=== PATIENT | male | born 1950 | race Caucasian/White ===

== ENCOUNTER 2018-03-17 13:56 | Outpatient (RCR) | payer OTHER, MEDICARE ==
[2018-03-12 10:11] VITALS: BP 150/80
[2018-03-13 12:33] VITALS: BP 148/94
[2018-03-13 12:48] VITALS: BP 136/112
[~2018-03-17 13:56] MED LIST: ALLO-119 PO; AUG500 PO; HYDR-653 PO; IBUP800T37 PO; IRO150 PO; KET10 PO; LISI-374 PO; NO REPORTED MEDS; PAN40 PO; PER PO; PREDNISONE; SUCR1ORA13 PO
[2018-03-17 14:01] VITALS: BP 125/87
== END 2018-05-14 11:24 | disposition home or self-care (01) ==
LOC: SPU 13:56
PROVIDERS: ADMIT Surgery; ATTEND Family Medicine
DX: D75.1 Secondary polycythemia (principal)
CPT/HCPCS: 99195

== ENCOUNTER 2018-06-12 15:15 | Outpatient (RCR) | payer MEDICARE, OTHER ==
--- NOTE | 2018-04-07 09:36 | PT INITIAL EVALUATION ---
MEDICAL DIAGNOSIS: complete rotator cuff tear of left shoulder TREATMENT DIAGNOSIS: same DATE OF ONSET: 03/18/18 SUBJECTIVE: uHgo Whalen presents to physical therapy status post L RSA on March 18 2018. He reports that this physician is requiring him to wear his sling til Saturday. He reports that he has not been doing anything at home other than shoulder circles over a counter and squeezing his ball. He denies any resting pain. He reports that he feels pain when he moves his shoulder and rates it to be 4-5/10. He reports that he would like to get back to work and would like to swim when they go to [place] in the winter and spring. He reports that he has more elbow pain than shoulder pain due to a blood sack. He reports that he has been icing and elevating. REHAB PROBLEM LIST: Increased Pain Decreased ROM Decreased Strength Decreased Endurance Decreased Function Decreased ADL's PREVIOUS MEDICAL HISTORY: See EMR OCCUPATION: Work around the house OBJECTIVE: Posture: He demonstrates minimal forward head, B rounded shoulders, increased thoracic kyphosis, and decreased lumbar lordosis ROM: PROM of L shoulder: flexion: 135 deg, abduction: 95 deg, ER at side: 20 deg, IR: 85 deg. AAROM: flexion: 125 deg, abduction: 90 deg, ER at side: 20 deg, IR: 85 deg. AROM: flexion, abduction, flexion: 90 deg. He had empty end feels in all directions. Strength: Did not perform due to recent surgical intervention Palpation: TTP: anterior L shoulder, L anterior, medial, and lateral elbow Special Tests: QuickDash: 41% impairment Mobility: Independent Gait: Moderate hypomobility of L scapulae in all directions. ASSESSMENT: Hugo will benefit from skilled physical therapy addressing the listed impairments and improve function and QOL per his healing parameters. Short Term Goals 2 weeks: Pt will demonstrate full L shoulder PROM in all directions (flexion, abduction, IR, ER, and scaption) to improve function and QOL. 4 weeks: Pt will demonstrate full L shoulder AROM in all directions to improve function and QOL. 6 weeks: Pt will be independent with strengthening and flexibility exercise to improve and return to prior level of function. 6 weeks: Pt will demonstrate significant improvements in L shoulder and periscapular strength from baseline to 4+/5 or greater to improve function and QOL. Patient's Goals return to work around the house and get back to swimming PLAN: Patient to be seen for Manual Therapy/STM/MET Strengthening/condition Ice/Heat Range of Motion Work Hardening/Cond Stretching Iontophoresis Neuromuscular Re-ed Closed Chain Program Electrical Stim Posture/Body mechanics Home Exercise Program Therapeutic Activities 2-3 x/weeks for 6 Weeks If you have any questions, comments, or concerns about this report or plan, please contact me at . Thank you, Boaz Cabezas, PT, DPT MTDD
--- NOTE | 2018-05-12 11:11 | PT PLAN OF CARE ---
Physician: Ronen Acosta MD Patient is being seen: 2x/week Therapist: Boaz Cabezas, PT, DPT Medical Diagnosis: complete rotator cuff tear of left shoulder Treatment Diagnosis: same Date of Onset: 03/18/18 Date of Initial Evaluation: 04/07/18 Date patient was last seen: 05/12/18 Number of treatments: 10 Number of cancellations/No shows: 1 INTERVENTIONS: Manual Therapy/STM/MET Strengthening/condition Ice/Heat Range of Motion Work Hardening/Cond Stretching Iontophoresis Neuromuscular Re-ed Closed Chain Program Electrical Stim Posture/Body mechanics Home Exercise Program Therapeutic Activities GOALS: 2 weeks: Pt will demonstrate full L shoulder PROM in all directions (flexion, abduction, IR, ER, and scaption) to improve function and QOL. 4 weeks: Pt will demonstrate full L shoulder AROM in all directions to improve function and QOL. 6 weeks: Pt will be independent with strengthening and flexibility exercise to improve and return to prior level of function. 6 weeks: Pt will demonstrate significant improvements in L shoulder and periscapular strength from baseline to 4+/5 or greater to improve function and QOL. PATIENT'S GOAL: return to work around the house and get back to swimming Status of Patient's Goals: Progressing Patient Compliance: Good Prognosis: Excellent Reasons for continuing therapy: This is a progress note for Hugo Whalen. He reports that he feels like the L shoulder is improving but continues to report increased "popping" in the L shoulder during L shoulder PROM-AROM into scaption and abduction and from the 90-120 degrees of those ranges it is an extremely painful pop and it goes from superficial pop to deep pop as he moves from scaption to abduction. He denies any resting L shoulder pain and states that he only has intense pain with that popping sensation. He reports that he does have neck pain and rates his neck pain to be 3/10. He states that he would like to have his neck pain checked out in the future. He reports that his L hand will become numb and painful during the night and typically wakes him 2 times per night. Furthermore, he reports that the L elbow is getting better and occasionally feels a sharp pain. He continues to progressing with PROM-AAROM with his L shoulder in all directions, but continues to have the painful arc in scaption and abduction along with an extremely painful pop. In scaption, the pop feels like a posterior muscle is popping over humerus as it rotates when he elevates his L shoulder. In abduction, the pop sensation becomes deeper and feels less muscle interference and more joint related. As a result, we positioned his L glenohumeral joint more anterior with McConnells tape and he experienced a drastic reduction of pain and popping with L shoulder AAROM into scaption and abduction. He demonstrated significant improvements in his quickDASH from 41% impairment to 18% impairment. Furthermore, we will continue to improve PROM-AROM in all directions, strength, and return to prior level of function as he tolerates. Posture: He demonstrates minimal forward head, B rounded shoulders, increased thoracic kyphosis, and decreased lumbar lordosis ROM: PROM of L shoulder: flexion: 160 deg, abduction: 130 deg, ER at side: 85 deg, IR: 90 deg. AAROM: flexion: 150 deg, abduction: 130 deg, ER at side: 70 deg, IR: 85 deg. AROM: flexion, abduction, flexion: 110 deg. Special Tests: QuickDash: 18% impairment Mobility: Independent If you have any questions, please contact me at [phone]. Thank you, Boaz Cabezas, PT, DPT MTDD
--- NOTE | 2018-06-13 18:32 | PT PLAN OF CARE ---
Physician: Ronen Acosta MD Patient is being seen: 2x/week Therapist: Boaz Cabezas, PT, DPT Medical Diagnosis: complete rotator cuff tear of left shoulder Treatment Diagnosis: same Date of Onset: 03/18/18 Date of Initial Evaluation: 04/07/18 Date patient was last seen: 06/12/18 Number of treatments: 17 Number of cancellations/No shows: 2 INTERVENTIONS: Manual Therapy/STM/MET Strengthening/condition Ice/Heat Range of Motion Work Hardening/Cond Stretching Iontophoresis Neuromuscular Re-ed Closed Chain Program Electrical Stim Posture/Body mechanics Home Exercise Program Therapeutic Activities GOALS: 2 weeks: Pt will demonstrate full L shoulder PROM in all directions (flexion, abduction, IR, ER, and scaption) to improve function and QOL. 4 weeks: Pt will demonstrate full L shoulder AROM in all directions to improve function and QOL. 6 weeks: Pt will be independent with strengthening and flexibility exercise to improve and return to prior level of function. 6 weeks: Pt will demonstrate significant improvements in L shoulder and periscapular strength from baseline to 4+/5 or greater to improve function and QOL. PATIENT'S GOAL: return to work around the house and get back to swimming Status of Patient's Goals: Progressing Patient Compliance: Good Prognosis: Excellent Reasons for continuing therapy: This is a progress note for Hugo Whalen. He reports that he is doing better. He reports that he feels like the L shoulder is getting stronger and he is able to move it better in all directions. He reports that the popping has gotten better, but occasional continues when moving the L shoulder in abduction. He denies any current pain. He reports that he continues to perform his HEP without any difficulties. He reports that he will be heading down to [place] following this session. He demonstrated significant improvements in his quickDASH from 41% impairment to 18% to 15% impairment. He has demonstrated the following improvements: increased PROM-AROM in all directions; however, he continues to be limited with PROM-AROM at all end ranges except for IR, increased periscapular strength; however, he continually requires moderate verbal and tactile cues to prevent L UT activation, decreased to abolished L shoulder popping with AAROM into flexion, scaption, and abduction, which is a significant improvement. Furthermore, he would benefit from continues physical therapy in [place] to continue to address his listed impairments to return to prior level of function. Posture: He demonstrates minimal forward head, B rounded shoulders, increased thoracic kyphosis, and decreased lumbar lordosis ROM: PROM of L shoulder: flexion: 170 deg, abduction: 15 deg, ER at side: 90 deg, IR: 90 deg. AAROM: flexion: 160 deg, abduction: 140 deg, ER at side: 85 deg, IR: 90 deg. AROM: flexion, abduction, flexion: 155 deg. Special Tests: QuickDash: 15% impairment Mobility: Independent If you have any questions, please contact me at [phone]. Thank you, Boaz Cabezas, PT, DPT MTDD
== END 2018-06-12 18:00 | disposition home or self-care (01) ==
LOC: PT 15:15
PROVIDERS: ATTEND Orthopaedic Surgery Sports Medicine
DX: Z47.89 Encounter for other orthopedic aftercare (principal); M25.522 Pain in left elbow; M25.512 Pain in left shoulder
CPT/HCPCS: 97162